=== PATIENT | male | born 1960 | race Caucasian/White ===

== ENCOUNTER 2019-10-18 09:31 | Inpatient (IN) ==
[2019-10-18 09:55] LABS: ALLEN TEST YES; BE -22.9 mmoll (-3.0-3.0); BLOOD TYPE ARTERIAL; METHB 1.3 % (0.0-1.5); O2(CT) 23.4 mL/dL (15.0-23.0); PO2(98.6) 106 mmHg (60-100); SAMPLE BLOOD; THB 17.3 g/dL (11.5-17.4)
[2019-10-18 09:57] LABS: MODALITY ROOM AIR
[2019-10-18 10:01] LABS: pH(98.6) 7.08 (7.35-7.45)
[2019-10-18 10:02] LABS: PCO2(98.6) 17 mmHg (35-45)
--- NOTE | 2019-10-18 10:10 | Diag Imaging Result Doc PS360 ---
CHEST-1 VIEW - 10/18/2019 INDICATION: CP COMPARISON: 07/14/2017 FINDINGS: The lungs are normally expanded and clear. Heart size and mediastinal contours are normal. No pneumothorax or pleural effusion. IMPRESSION: Negative exam. Electronically signed by Gustabo Patel 10/18/2019 10:08 AM
[2019-10-18] MEDS ORDERED: NS 1,000 ML IV ONE ×3 (10:13→13:08)
[2019-10-18 11:03] LABS: URINE SOURCE CLEAN CATCH
[2019-10-18 11:07] LABS: BILIRUBIN URINE NEGATIVE (NEGATIVE); BLOOD URINE SMALL (NEGATIVE); COLOR YELLOW; GLUCOSE URINE >1000 mg/dL (NEGATIVE); KETONE URINE 100 mg/dL (NEGATIVE); LEUKOCYTES URINE NEGATIVE (NEGATIVE); NITRITE URINE NEGATIVE (NEGATIVE); PH URINE 5.5; PROTEIN URINE 50 mg/dL (NEGATIVE); SP GRAVITY URINE 1.024; TURBIDITY URINE CLEAR (CLEAR); UROBILINOGEN URINE NORMAL (NORMAL)
[2019-10-18 11:08] LABS: UR EPITHELIAL CELLS <10 /HPF (<10); URINE BACTERIA NEGATIVE /HPF; URINE RBC <10 /HPF (<10); URINE WBC <10 /HPF (<10)
[2019-10-18 11:24] LABS: ALB/GLOB RATIO 1.8; ALBUMIN 4.9 g/dL (3.5-5.0); BASO# 0.02 X1000 (0.0-0.2); BASO% 0.1 % (0.0-0.8); CREATININE 2.5 mg/dL (0.7-1.2); HEMATOCRIT 51.8 % (42.0-52.0); HEMOGLOBIN 17.6 g/dL (14.0-18.0); IMM GRAN# 0.17 X1000 (0.0-0.04); IMM GRAN% 0.8 % (0.0-0.5); LYMPH# 0.82 X1000 (1.2-3.4); LYMPH% 3.8 % (20.5-51.1); MAGNESIUM 2.8 mg/dL (1.5-2.7); MCH 31.3 PG (27-31); MCV 92.2 FL (81-99); MONO# 1.18 X1000 (0.11-0.59); MONO% 5.5 % (1.7-9.3); MPV 12.3 FL (7.4-10.4); NEUT# 19.14 X1000 (1.4-6.5); NEUT% 89.8 % (42.2-75.2); PLT 289 X1000 (130-400); RBC 5.62 XMIL (4.7-6.1); RDW 12.3 % (11.5-14.5); TOTAL BILIRUBIN 0.4 mg/dL (0.20-1.00); TOTAL PROTEIN 7.7 g/dL (6.3-8.3); WBC 21.33 X1000 (4.8-10.8)
[2019-10-18 11:27] LABS: POTASSIUM 6.4 mmol/L (3.5-5.1)
[2019-10-18] MEDS ORDERED: SODIUM BICARBONATE 8.4% 100 MEQ in STERILE WATER INJ. 500 ML IV PRN ×2 (11:43→13:04)
[2019-10-18] MEDS ORDERED: D50W SYRINGE IV PRN ×3 (11:43→12:47)
[2019-10-18] MEDS ORDERED: HUMULIN R IV ONE (11:43)
[2019-10-18] MEDS ORDERED: SODIUM PHOSPHATE 30 MMOL in D5W 250 ML IV PRN ×2 (11:43→13:04)
[2019-10-18] MEDS ORDERED: MAGNESIUM SULFATE 2 GM/S.W.I. 2 GM/50 ML IVPB IV PRN ×2 (11:43→13:04)
[2019-10-18] MEDS ORDERED: POTASSIUM CHLORIDE 20 MEQ/SWI 20 MEQ/100 ML IVPB IV PRN ×2 (11:43)
--- NOTE | 2019-10-18 11:44 | EKG Report ---
Test Performed on : 10/18/2019 09:47:10 AM Test Reason : HIGH BLOOD SUGAR Blood Pressure : / mmHG Vent. Rate : 122 BPM Atrial Rate : 122 BPM P-R Int : 150 ms QRS Dur : 108 ms QT Int : 340 ms P-R-T Axes : 073 028 064 degrees QTc Int : 484 ms Sinus tachycardia. Possible Inferior infarct , age undetermined Abnormal ECG When compared with ECG of 06-AUG-2017 09:19, Vent. rate has increased BY 54 BPM Unconfirmed Result
[2019-10-18] MEDS ORDERED: HUMULIN R 100 UNIT in NS 100 ML IV SCH ×2 (11:45→13:00)
[2019-10-18] MEDS ORDERED: NS 1,000 ML IV SCH (11:45)
[2019-10-18] MEDS ORDERED: ZOSYN 4.5 GM in NS 100 ML IV ONE (11:49)
[2019-10-18 12:04] LABS: INR 1.12; PROTIME 14.5 Seconds (11.0-16.0)
[2019-10-18 12:05] LABS: PTT 28.9 Seconds (22.3-41.8)
[2019-10-18 12:07] LABS: HEMOGLOBIN A1C 11.5 % (4.8-6.0)
[2019-10-18] MEDS ORDERED: KAYEXALATE PO ONE (12:47)
[2019-10-18] MEDS ORDERED: TYLENOL PO PRN (12:47)
[2019-10-18] MEDS ORDERED: POTASSIUM CHLORIDE 40 MEQ/SWI 40 MEQ/100 ML IVPB IV PRN (13:04)
[2019-10-18] MEDS: NS 1,000 ML IV SCH ×2 (13:21→21:03)
[2019-10-18 14:11] LABS: CALCIUM 8.6 mg/dL (8.8-10.2); MAGNESIUM 2.7 mg/dL (1.5-2.7); PHOSPHORUS 3.3 mg/dL (2.7-4.5); POTASSIUM 5.5 mmol/L (3.5-5.1)
--- NOTE | 2019-10-18 15:12 | Diag Imaging Result Doc PS360 ---
ABDOMEN FLAT/UPRIGHT - 10/18/2019 INDICATION: pain COMPARISON: None FINDINGS: There is a nonobstructive bowel gas pattern. No free air or abdominal calcifications. IMPRESSION: No acute disease. Electronically signed by Gustabo Patel 10/18/2019 3:10 PM
[2019-10-18] MEDS: ZOFRAN IV PRN (15:31)
[2019-10-18] MEDS ORDERED: POTASSIUM CHLORIDE 20% LIQUID PO PRN (15:46)
[2019-10-18 16:31] LABS: UR CREAT RANDOM 38.2 mg/dL (14-26); UR PROT RANDOM 20.8 mg/dL
[2019-10-18] MEDS: D5 NS 1,000 ML IV PRN (17:24)
[2019-10-18 17:43] LABS: CALCIUM 8.3 mg/dL (8.8-10.2); MAGNESIUM 2.5 mg/dL (1.5-2.7)
[2019-10-18 17:47] LABS: CREATININE 1.9 mg/dL (0.7-1.2); PHOSPHORUS 2.5 mg/dL (2.7-4.5); POTASSIUM 4.9 mmol/L (3.5-5.1)
[2019-10-18] MEDS: POTASSIUM CHLORIDE 10% LIQUID PO PRN ×2 (17:59→23:45)
[2019-10-18] MEDS ORDERED: PRILOSEC PO ONE (18:26)
[2019-10-18] MEDS ORDERED: ZANTAC PO ONE (18:27)
--- NOTE | 2019-10-18 18:41 | HISTORY AND PHYSICAL ---
PRIMARY CARE PHYSICIAN: Dr. Jc Askew. CHIEF COMPLAINT: Nausea, vomiting, weakness and shortness of breath over the past 3 days that progressively worsened. HISTORY OF PRESENTING ILLNESS: This is a 58-year-old male who presents to [facility] with complaints of nausea, vomiting, weakness and shortness of breath over the past 3 days that progressively worsened. States this past Thursday he saw his primary care physician and was diagnosed with diabetes type 2 with an A1c of 13. He was placed on metformin and Farxiga and a glucose monitor. The next day, he states, the doctor's office called and stated that his cholesterol was in the 500s and started him on a statin, but he began the nausea and vomiting the next day, which would have been Thursday. He called the doctor's office and they told him to hold his diabetic medications, so he has not been taking any of the medications that he was prescribed due to having nausea and vomiting over the past 3 days that progressively worsened. When he arrived to the emergency room today, he had a white blood cell count of 21.33 and an ABG with a pH of 7.08, pCO2 of 17, PO2 of 106, bicarb of 7. His sodium was 134, potassium was 6.4, chloride 93, BUN 48, creatinine 2.5. Glucose was 505. His plasma lactate was 3.5. Hemoglobin A1c today was 11.5. Urinalysis was negative and his acetone is small, so he will be placed in the intensive care unit and placed on our DKA protocol and will be admitted for further evaluation and treatment. PAST MEDICAL HISTORY: Newly diagnosed diabetes type 2 approximately 5 days ago, hyperlipidemia, and right kidney cancer. PAST SURGICAL HISTORY: Partial right nephrectomy, back surgery, and hernia repair. FAMILY HISTORY: Reviewed and noncontributory. SOCIAL HISTORY: Currently lives with family, is a former smoker and quit 8 years ago. Denies any alcohol or illicit drug use. ALLERGIES: No known drug allergies. HOME MEDICATIONS: A current list will need to be obtained, reconciled, reviewed and restarted as appropriate. We will place an order for nursing to update and confirm home medications. LABORATORY DATA: Showed a white blood cell count of 21.33, hemoglobin of 17.6, hematocrit of 51.8, platelets of 289, PT/INR of 14.5 and 1.12. ABG with a pH of 7.08, pCO2 of 17, PO2 of 106, and bicarb of 7, and this was on room air. Sodium 134, potassium 6.4, chloride 93. CO2 was 8, anion gap 33, BUN 48, creatinine 2.5, glucose 505 with an A1c of 11.5. Magnesium 2.8, phosphorus 5.5. AST 35, ALT 99, alkaline phosphatase 164. Cardiac enzyme was negative. Plasma lactate of 3.4. Urinalysis was negative. Acetone level was small. Chest x-ray showed a negative exam. EKG showed sinus tachycardia at 122. REVIEW OF SYSTEMS: He denied any fever, chills, blurred vision, dizziness, chest pain, coughing. He was positive for some shortness of breath, generalized weakness, nausea, vomiting. Denied any abdominal pain, constipation, diarrhea, burning or hurting with urination. PHYSICAL EXAMINATION: VITAL SIGNS: On arrival he had a heart rate of 121, a pulse of 16, blood pressure 113/70, saturating 97% on room air. GENERAL: This is a 58-year-old male who is lying in the bed and answers questions appropriately. HEENT: Normocephalic, atraumatic. Normal ENT inspection. Oropharynx and nares are clear. EYES: Pupils are equal, round, reactive to light and accommodation. Extraocular movements are intact. NECK: Normal inspection, normal range of motion. LUNGS: Clear to auscultation bilaterally with equal lung expansion and chest wall movement. HEART: With regular rate and rhythm. No murmurs, rubs, or gallops. ABDOMEN: Soft, nontender, nondistended. Bowel sounds are present x4 quadrants. MUSCULOSKELETAL: He had 5/5 strength x4 extremities. NEUROLOGICAL: The cranial nerves II-XII appear grossly intact. ASSESSMENT: 1. Diabetic ketoacidosis in a newly diagnosis diabetic type 2 with hyperglycemia. 2. Hyperkalemia. 3. Acute kidney injury. 4. Leukocytosis, most likely reactive. PLAN: He will be admitted to the intensive care unit and placed on our DKA protocol. We will do a clear liquid diet with diabetic drinks. Labs per the protocol. We need to update and confirm home medications and give Zofran 4 mg IV every 4 hours p.r.n. We are going to give him some Kayexalate 30 grams p.o. x1 now and recheck labs again per the protocol. Further orders after seen by attending. We will give his fluids per the protocol also. He is receiving his second liter of fluids at this time. We will continue to follow. We will also consult the senior health educator. Dictated by DASH Strauss for Bimal Sal MD cc: DASH Strauss MD Thomas E. Lockard,
--- NOTE | 2019-10-18 19:39 | HISTORY AND PHYSICAL ---
ADDENDUM: The patient came in for abnormal blood sugar and feeling terrible for the last several days. He was diagnosed with diabetes 2 to 3 days ago, started on metformin and dapagliflozin (Farxiga). He has had pretty much uncontrolled nausea and vomiting since that time, unable to keep his medicines down. Today, he came in with a blood sugar over 500, hyperkalemia, metabolic acidosis, acute renal failure. Workup in the ER consistent with DKA, and he was admitted and treated as such. We will continue aggressive hydration, avoid any nephrotoxic drugs, continue insulin drip. I think at this point, I am going to convert him to subcutaneous insulin. I do not think we are going to be able to manage it, at least acutely or subacutely, until we get treatment. CRITICAL CARE TIME: 35 minutes for IV insulin and DKA. cc: Bimal Sal MD
[2019-10-18 20:57] LABS: CALCIUM 7.9 mg/dL (8.8-10.2); CREATININE 1.7 mg/dL (0.7-1.2); MAGNESIUM 2.2 mg/dL (1.5-2.7); PHOSPHORUS 1.4 mg/dL (2.7-4.5); POTASSIUM 4.3 mmol/L (3.5-5.1)
[2019-10-19] MEDS ORDERED: G.I. COCKTAIL PO ONE (00:16)
[2019-10-19] MEDS: D5 NS 1,000 ML IV PRN ×2 (00:19→09:36)
[2019-10-19 01:59] LABS: CALCIUM 8.1 mg/dL (8.8-10.2); CREATININE 1.6 mg/dL (0.7-1.2); MAGNESIUM 2.3 mg/dL (1.5-2.7); PHOSPHORUS 2.1 mg/dL (2.7-4.5); POTASSIUM 4.1 mmol/L (3.5-5.1)
[2019-10-19] MEDS: POTASSIUM CHLORIDE 10% LIQUID PO PRN (02:23)
[2019-10-19] MEDS: NS 1,000 ML IV SCH ×3 (05:14→18:02)
[2019-10-19] MEDS: PRILOSEC PO SCH (06:19)
[2019-10-19 07:15] LABS: ALB/GLOB RATIO 1.3; ALBUMIN 3.3 g/dL (3.5-5.0); CALCIUM 8.1 mg/dL (8.8-10.2); CREATININE 1.3 mg/dL (0.7-1.2); MAGNESIUM 2.4 mg/dL (1.5-2.7); POTASSIUM 3.6 mmol/L (3.5-5.1); TOTAL BILIRUBIN 0.22 mg/dL (0.20-1.00); TOTAL PROTEIN 5.8 g/dL (6.3-8.3)
[2019-10-19 08:39] LABS: BASO# 0.01 X1000 (0.0-0.2); BASO% 0.1 % (0.0-0.8); HEMATOCRIT 36.9 % (42.0-52.0); HEMOGLOBIN 12.8 g/dL (14.0-18.0); IMM GRAN# 0.09 X1000 (0.0-0.04); IMM GRAN% 0.6 % (0.0-0.5); LYMPH# 0.94 X1000 (1.2-3.4); LYMPH% 6.7 % (20.5-51.1); MCH 32.1 PG (27-31); MCHC 34.7 g/dL (33-37); MCV 92.5 FL (81-99); MONO# 1.69 X1000 (0.11-0.59); MONO% 12.1 % (1.7-9.3); MPV 11.3 FL (7.4-10.4); NEUT# 11.21 X1000 (1.4-6.5); NEUT% 80.5 % (42.2-75.2); PLT 169 X1000 (130-400); RBC 3.99 XMIL (4.7-6.1); RDW 12.2 % (11.5-14.5); WBC 13.94 X1000 (4.8-10.8)
[2019-10-19] MEDS: ZOFRAN IV PRN (08:45)
[2019-10-19] MEDS: ELAVIL PO SCH (08:45)
[2019-10-19 09:32] LABS: ESTIMATED GFR > 60
[2019-10-19 09:35] LABS: AGAP 14; BUN 19 mg/dL (8-22); CALCIUM 8.2 mg/dL (8.8-10.2); CHLORIDE 110 mmol/L (98-107); COSMO 285; CREATININE 1.2 mg/dL (0.7-1.2); GLUCOSE 198 mg/dL (70-104); MAGNESIUM 2.3 mg/dL (1.5-2.7); POTASSIUM 3.4 mmol/L (3.5-5.1); SODIUM 139 mmol/L (136-145); TCO2 15 mmol/L (25-35)
--- NOTE | 2019-10-19 09:38 | Diag Imaging Result Doc PS360 ---
EXAM: US ABDOMEN-COMPLETE HISTORY: abdominal pain TECHNIQUE: Abdominal ultrasound COMPARISON: None. FINDINGS: No abnormality to the pancreatic head or body. Tail is obscured. Inferior vena cava is also obscured. No dilatation to the proximal and mid aorta. Distal aorta is obscured. There is fatty infiltration of the liver. It is difficult to penetrate the liver. Normal gallbladder. No stones. The common bile duct measures 5 mm. The spleen is normal. No ascites. Normal left kidney. The lower pole of the right kidney is obscured. No hydronephrosis. IMPRESSION: Fatty infiltration of the liver Electronically signed by Duglas Hood 10/19/2019 9:36 AM
[2019-10-19] MEDS ORDERED: SODIUM PHOSPHATE 40 MEQ in NS 250 ML IV ONE (11:02)
[2019-10-19] MEDS ORDERED: G.I. COCKTAIL PO PRN (11:02)
[2019-10-19 14:55] LABS: AGAP 15; BUN 15 mg/dL (8-22); CHLORIDE 108 mmol/L (98-107); COSMO 284; ESTIMATED GFR > 60; GLUCOSE 191 mg/dL (70-104); MAGNESIUM 2.2 mg/dL (1.5-2.7); PHOSPHORUS 2.5 mg/dL (2.7-4.5); POTASSIUM 3.5 mmol/L (3.5-5.1); SODIUM 139 mmol/L (136-145); TCO2 16 mmol/L (25-35)
[2019-10-19 17:05] LABS: ALLEN TEST YES; BE -5.9 mmoll (-3.0-3.0); BLOOD TYPE ARTERIAL; HCO3-(ACT) 20.3 mmoll (20.0-26.0); O2(CT) 14.9 mL/dL (15.0-23.0); PCO2(98.6) 31 mmHg (35-45); PO2(98.6) 71 mmHg (60-100); SAMPLE BLOOD; SAO2 97.9 % (95.0-100.0); THB 11.1 g/dL (11.5-17.4); pH(98.6) 7.38 (7.35-7.45)
[2019-10-19 17:06] LABS: MODALITY ROOM AIR
[2019-10-19] MEDS ORDERED: LANTUS INSULIN SUBQ ONE (17:29)
[2019-10-19] MEDS ORDERED: HUMULIN R 100 UNIT in NS 100 ML IV SCH (17:30)
[2019-10-19 18:31] LABS: MAGNESIUM 2.2 mg/dL (1.5-2.7); PHOSPHORUS 2.5 mg/dL (2.7-4.5)
[2019-10-19] MEDS: HUMALOG SUBQ SCH (20:11)
[2019-10-20] MEDS: NS 1,000 ML IV SCH ×3 (05:04→17:04)
[2019-10-20] MEDS: HUMALOG SUBQ SCH ×3 (06:12→21:30)
[2019-10-20] MEDS: PRILOSEC PO SCH ×2 (06:12→21:28)
[2019-10-20 08:21] LABS: BASO# 0.01 X1000 (0.0-0.2); BASO% 0.1 % (0.0-0.8); EOS# 0.04 X1000 (0.0-0.7); EOS% 0.6 % (0.0-10.0); HEMATOCRIT 33.9 % (42.0-52.0); HEMOGLOBIN 11.5 g/dL (14.0-18.0); IMM GRAN# 0.02 X1000 (0.0-0.04); IMM GRAN% 0.3 % (0.0-0.5); LYMPH# 1.38 X1000 (1.2-3.4); LYMPH% 19.7 % (20.5-51.1); MCH 31.7 PG (27-31); MCHC 33.9 g/dL (33-37); MCV 93.4 FL (81-99); MONO% 12.8 % (1.7-9.3); MPV 11.6 FL (7.4-10.4); NEUT# 4.67 X1000 (1.4-6.5); NEUT% 66.5 % (42.2-75.2); PLT 137 X1000 (130-400); RBC 3.63 XMIL (4.7-6.1); RDW 12.2 % (11.5-14.5); WBC 7.02 X1000 (4.8-10.8)
[2019-10-20 09:01] LABS: AGAP 11; BUN 10 mg/dL (8-22); CALCIUM 8.1 mg/dL (8.8-10.2); CHLORIDE 107 mmol/L (98-107); COSMO 274; CREATININE 0.9 mg/dL (0.7-1.2); ESTIMATED GFR > 60; GLUCOSE 116 mg/dL (70-104); POTASSIUM 3.2 mmol/L (3.5-5.1); SODIUM 137 mmol/L (136-145); TCO2 19 mmol/L (25-35)
[2019-10-20] MEDS: ELAVIL PO SCH (10:20)
[2019-10-20] MEDS: LANTUS INSULIN SUBQ SCH (10:21)
[2019-10-20] MEDS: MIRALAX PO SCH (14:26)
[2019-10-20] MEDS: LACTULOSE PO SCH ×2 (14:26→21:28)
[2019-10-20] MEDS: CARAFATE LIQUID PO SCH (22:06)
[2019-10-21] MEDS: CARAFATE LIQUID PO SCH ×3 (02:08→14:03)
[2019-10-21] MEDS: HUMALOG SUBQ SCH ×2 (07:01→11:25)
[2019-10-21] MEDS: NS 1,000 ML IV SCH ×2 (07:37→09:57)
[2019-10-21 08:15] LABS: BASO# 0.01 X1000 (0.0-0.2); BASO% 0.2 % (0.0-0.8); EOS# 0.11 X1000 (0.0-0.7); EOS% 1.7 % (0.0-10.0); HEMATOCRIT 37.4 % (42.0-52.0); IMM GRAN# 0.02 X1000 (0.0-0.04); IMM GRAN% 0.3 % (0.0-0.5); LYMPH# 1.28 X1000 (1.2-3.4); LYMPH% 19.3 % (20.5-51.1); MCH 31.9 PG (27-31); MCHC 34.8 g/dL (33-37); MCV 91.9 FL (81-99); MONO% 13.6 % (1.7-9.3); MPV 11.2 FL (7.4-10.4); NEUT% 64.9 % (42.2-75.2); PLT 141 X1000 (130-400); RBC 4.07 XMIL (4.7-6.1); RDW 11.8 % (11.5-14.5); WBC 6.62 X1000 (4.8-10.8)
[2019-10-21 08:26] LABS: AGAP 12; BUN 8 mg/dL (8-22); CALCIUM 8.4 mg/dL (8.8-10.2); CHLORIDE 104 mmol/L (98-107); COSMO 277; CREATININE 0.8 mg/dL (0.7-1.2); ESTIMATED GFR > 60; GLUCOSE 117 mg/dL (70-104); SODIUM 139 mmol/L (136-145); TCO2 23 mmol/L (25-35)
[2019-10-21] MEDS: MIRALAX PO SCH (08:31)
[2019-10-21] MEDS: LACTULOSE PO SCH (08:31)
[2019-10-21] MEDS: PRILOSEC PO SCH (08:32)
[2019-10-21] MEDS: ELAVIL PO SCH (08:32)
[2019-10-21] MEDS: LANTUS INSULIN SUBQ SCH (08:34)
[2019-10-21 12:17] VITALS: BP 104/81
[2019-10-21] MEDS: MYCOSTATIN SUSP PO SCH ×2 (14:03→16:07)
[2019-10-21] MEDS ORDERED: KLOR-CON PO ONE ×2 (14:23→15:57)
[2019-10-21] MEDS: POTASSIUM CHLORIDE 20 MEQ/SWI 20 MEQ/100 ML IVPB IV SCH (15:56)
--- NOTE | 2019-10-21 18:31 | GASTROENTEROLOGY CONSULTATION ---
DATE: 10/21/2019 REASON FOR CONSULTATION: Nausea and vomiting. Dysphasia. HISTORY OF PRESENT ILLNESS: This is a 58-year-old male who presented to [facility] with complaints of nausea, vomiting, shortness of breath, weakness. He states he was recently diagnosed with diabetes type 2 by his primary care physician Dr. Jc Askew. He was started on metformin and Farxiga. He also had findings of elevated cholesterol and was started on a statin. His symptoms presented after starting these medications. He was having nausea, vomiting, progressive weakness came into the emergency room with elevated white blood cell count, elevated glucose and a hemoglobin A1c of 11.5, urinalysis had small amount of acetone. He was placed in the intensive care unit on DKA protocol. Currently he is now on the medical floor. His last reported nausea, vomiting episode was on Thursday. He states he is feeling better. He is currently receiving a PPI and Carafate. He had been held n.p.o. after midnight for possibility of endoscopy procedure today. Currently he denies abdominal pain. Currently denies dysphagia but he has not had anything to eat yet today. No reported nausea or vomiting. He states he feels much better. He is wanting to go home. PAST MEDICAL HISTORY: Recently diagnosed diabetes type 2, hyperlipidemia, history of right kidney cancer. PAST SURGICAL HISTORY: Partial right nephrectomy approximately 2 years ago he follows with Dr. Gar, history of laminectomy and left inguinal hernia repair. ALLERGIES: No known drug allergies. HOME MEDICATIONS: Amitriptyline 10 mg daily, Farxiga 10 mg daily, Vascepa 2 g twice a day, metformin 1000 mg daily, Zofran 4 mg every 6 hours as needed. SOCIAL HISTORY: He denies alcohol or tobacco use. He is . He has 2 children. 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 REVIEW OF SYSTEMS: Per history of present illness. Currently he denies chest pain, shortness of breath. No reported abdominal pain. No reported nausea, vomiting and no reported dysphagia at this time. PHYSICAL EXAMINATION: Vital Signs: Temperature 98.4 degrees, pulse 77, respirations 20, blood pressure 115/76. General: Patient is awake, alert, no acute distress. HEENT: Normocephalic, atraumatic. Pupils equal, round, reactive to light. Sclerae nonicteric. Oral mucosa is moist. No noted oral zoe. Respiratory: Lung sounds essentially clear. Cardiovascular: Regular rate and rhythm. Abdomen: Soft, nontender. Positive bowel sounds. Extremities: No lower extremity edema noted. Neurological: Cranial nerves 2-12 grossly intact. Patient is awake, alert, oriented to person, place and time. LABORATORY: Hematology. WBC 6.62, hemoglobin 13.0, hematocrit 37.4, MCV 91.9. Chemistry. Sodium 139, potassium 3.0, chloride 104, CO2 of 23, BUN 8, creatinine 0.8, glucose 117, total bilirubin 0.22, AST 21, ALT 54, alkaline phosphatase 101. ASSESSMENT AND PLAN: 1. Newly diagnosed diabetes. Continue current management and follow up with primary care physician. 2. Leukocytosis has resolved. 3. Nausea, vomiting has resolved. 4. Heartburn, dysphagia. Continue PPI and Carafate. Will also add nystatin for empirical treatment of possible zoe esophagitis due to his newly diagnosed diabetes. Recommend patient follow a soft diet over the next several days. If his symptoms do not improve, recommend he call to the office for EGD procedure to be scheduled. As far as GI is concerned he can be discharged when stable as far as his diabetes is concerned. We will continue to follow during this hospital course and further plans will be made according to his progress. I have ordered him a diabetic soft diet today and we will see how he does with that. Further plans to be made as needed. I have discussed this case with Dr. Perez. Dictated by DASH Martinez for Gonzales Perez MD cc: DASH Hancock MD
--- NOTE | 2019-10-22 18:22 | DISCHARGE SUMMARY ---
ADMISSION DATE: 10/18/2019 DISCHARGE DATE: 10/21/2019 PRIMARY CARE PHYSICIAN: Dr. Jc Askew. ADMISSION DIAGNOSIS: 1. Diabetic ketoacidosis in a newly diagnosed diabetic type 2 patient with hyperglycemia. 2. Hyperkalemia. 3. Acute kidney injury. 4. Leukocytosis most likely reactive. DISCHARGE DIAGNOSIS: 1. Diabetic ketoacidosis. 2. Type 2 diabetes uncontrolled with hyperglycemia, newly diagnosed diabetic. 3. Acute kidney injury resolved. 4. Leukocytosis resolved. SUMMARY OF FINDINGS: This is a 58-year-old male who presented to the ER with complaints of nausea, vomiting, weakness and shortness of breath over the past 3 days and progressively worsened. Stated 2 days prior on last Thursday he was diagnosed as a diabetic type 2 and was placed on Farxiga and metformin, 2 days later he began having a stomach bug like vomiting and was told to hold his diabetic medications as he was unable to keep any food or liquids down. He was noted to have an A1c of 13 and his doctor's office also called stating that his cholesterol was in the 500s and began him on a statin but had not started it since he had the nausea, vomiting. When he arrived to the emergency room he had an ABG with a pH of 708, pCO2 of 17, PO2 16, bicarb of 7. Sodium was 134, potassium 6.4, creatinine was 2.5, glucose was 505, plasma lactate of 3.5. Hemoglobin A1c on arrival was 11.3. He had small acetone in his blood so he was placed on the DKA protocol and placed in the intensive care unit per the protocol. We did do an abdomen ultrasound that just showed fatty infiltration of the liver. His triglycerides were 438, cholesterol was 288. He was stopped on the insulin drip per the protocol and has been doing much better. Blood sugars today have been 142 so it is felt that he can safely be discharged home today. DISCHARGE MEDICATIONS: His new medications at discharge will include NovoLog FlexPen 5 units subcu t.i.d., Lantus SoloSTAR pen 20 units subcutaneous daily, omeprazole 40 mg p.o. daily. FOLLOWUP: He does need to follow with his primary care physician in the next 1 to 2 weeks. Dictated by DASH Strauss for Bimal Sal MD cc: DO Bimal Manzano, MD
--- NOTE | 2019-10-22 21:10 | PROVIDER DOCUMENTATION ---
This chart was entered by Ashley Evans Scribe, acting as scribe for Oscar Cervantes MD. HPI-General Adult - General Chief Complaint: DKA ALERT Stated Complaint: HYPERGLYCEMIC Time Seen by Provider: 10/18/19 09:38 Source: patient Allergies/Adverse Reactions: Patient Allergies Allergy/AdvReac Type Severity Reaction Status Date / Time No Known Allergies Allergy Verified 08/12/17 05:31 Home Medications: Home Medication List Medication Instructions Recorded Confirmed Last Taken Type Amitriptyline HCl 10 mg PO DAILY 10/18/19 10/18/19 Unknown History Icosapent Ethyl [Vascepa] 2 gm PO BID 10/18/19 10/18/19 Unknown History Ondansetron HCl 4 mg PO Q6H PRN PRN 10/18/19 10/18/19 Unknown History Insulin Aspart [Novolog Flexpen] 5 unit SQ TID #1 insuln.pen 10/21/19 Unknown Rx Insulin Glargine,Hum.rec.anlog 20 unit SQ DAILY #1 insuln.pen 10/21/19 Unknown Rx [Lantus Solostar] Omeprazole [Prilosec] 40 mg PO DAILY@0700 #1 cap 10/21/19 Unknown Rx - History of Present Illness -Gen Adult Nature of Presenting Problems: 58yom presents to ED cc extreme weakness, SOB, nausea and vomiting for last 3 days. Pt reports his PCP advised him to hold his current meds due to the vomiting. Pt denies fever, chest pain or dysuria. Pt is drowsy but arousable upon exam. Pt has hx of Renal disease. Review of Systems - Adult - REVIEW OF SYSTEMS - ADULT Constitutional: reports: see HPI, fatique. denies: chills, fever Eyes: reports: no symptoms reported Ears, Nose, Mouth & Throat: reports: no symptoms reported Cardiovascular: reports: see HPI. denies: chest pain Respiratory: reports: see HPI, shortness of breath Gastrointestinal: reports: see HPI, nausea, vomiting Genitourinary: reports: see HPI. denies: dysuria Musculoskeletal: reports: no symptoms reported Integumentary: reports: no symptoms reported Neurological: reports: no symptoms reported Psychiatric: reports: no symptoms reported Endocrine: reports: no symptoms reported Hematologic/Lymphatic: reports: no symptoms reported Allergic/Immunologic: reports: no symptoms reported All Other Systems: Reviewed and Negative Past History - Adult - PAST MEDICAL HISTORY-ADULT Review of Records: reports: Nursing Assessment Review, Medications Reviewed, Social history reviewed & non-contributory. Major Childhood Illnesses: reports: denies history Cardiovascular: reports: denies history Respiratory: reports: denies history Gastrointestinal: reports: denies history Obstetrical/Gynecological: reports: denies history Genitourinary: reports: denies history Musculoskeletal: reports: denies history Neurological: reports: denies history Endocrine/Immune: reports: denies history Other Conditions: reports: denies history - IMMUNIZATION STATUS Childhood Immunizations: See Nurse Assessment Flu Vaccine: See Nurse Assessment - FAMILY HISTORY Family History: reviewed, not pertinent - SOCIAL HISTORY Smoking: quit greater than 1 year Physical Exam-General - PHYSICAL EXAM-ADULT Initial Vital Signs Reviewed: Yes - CONSTITUTIONAL General Appearance: lethargic, other (drowsy but arousable). negative: anxious, combative - EYES Eyes: PERRL/EOMI, pink conjunctivae - HEAD, EARS, NOSE, MOUTH & THROAT HENMT: normocephalic/atraumatic. negative: moist mucous membranes (dry), angioedema - NECK Neck: non-tender, normal inspection - RESPIRATORY Respiratory: chest non-tender, lungs clear, normal breath sounds. negative: wheezing - CARDIOVASCULAR Cardiovascular: normal peripheral pulses, no edema, tachycardia. negative: bradycardia - GASTROINTESTINAL (ABDOMEN) Abdominal Exam: normal bowel sounds, soft, tenderness (generalized). negative: guarding, rigid - MUSCULOSKELETAL Back Exam: normal inspection, no CVA tenderness, no vertebral tenderness Extremity: normal range of motion, normal inspection, normal capillary refill. negative: deformity - SKIN Integumentary: normal color. negative: diaphoresis, jaundice - PSYCHIATRIC Psych/Mental Status: normal mood/affect, oriented x 3. negative: anxious, disheveled Progress - PLAN OF CARE/RESULTS Progress/Plan/Lab Results: Vital Signs - 8 hr 10/18/19 09:53 Pulse Rate 121 H Respiratory Rate 16 Blood Pressure 113/70 O2 Sat by Pulse Oximetry 97 Laboratory Results - last 24 hr 10/18/19 10/18/19 09:46 09:51 Specimen Type ARTERIAL Sample Site R RADIAL pH 7.08 L* pCO2 17 L* pO2 106 H HCO3 7.0 L Base Excess -22.9 L Oxyhemoglobin 96.0 ABG O2 Sat (Calculated) 23.4 H ABG O2 Saturation 99.0 ABG Carboxyhemoglobin 1.70 ABG Methemoglobin 1.3 Jaydon Test YES A-a O2 Difference 22.0 Total Hemoglobin 17.3 Lactate 2.60 H Blood Gas Modality ROOM AIR FiO2 % 21.0 POC Glucose 425 H Orders Category Date Time Status CHEST-1 VIEW [RAD] Stat Exams 10/18/19 09:47 Completed ABG [RESP] Routine Lab 10/18/19 09:46 Completed CBC WITH ELECTRONIC DIFF [HEME] Stat Lab 10/18/19 10:13 Ordered CK PROFILE [SP CHEM] Stat Lab 10/18/19 10:13 Ordered COMPREHENSIVE METABOLIC PANEL [CHEM] Stat Lab 10/18/19 10:13 Ordered Ketone [ACETONE SERUM] [CHEM] Stat Lab 10/18/19 10:13 Uncollected MAGNESIUM [CHEM] Stat Lab 10/18/19 10:13 Ordered TROPONIN T Stat Lab 10/18/19 10:13 Ordered Result Diagrams: 10/21/19 07:42 10/21/19 07:42 - EKG 1 Time of EKG reading by physician:: 10:23 EKG Read and Signed by:: Oscar Cervantes EKG Interpretation (*Must complete 3 of following elements*): Abnormal (possible inferior infarct, age undetermined; tall T waves-hyperkylemia?;NO STEMI) Rate: 122 Rhythm: Sinus tachy QRS: normal ID Interval: normal - XRAY 1 XRAY: Bilateral XRAY Study: Chest Impression: See EMR Report (IMPRESSION: Negative exam. Electronically signed by Gustabo Patel 10/18/2019 10:08 AM) - CONSULTS/PCP/HOSPITALIST Notification #1 *Consult/PCP/Hospitalist*: Nat/[employer] CONSULT[facility] Time Discussed: 11:33 Consult Disposition: Admit (accepted pt) Departure - Departure Date of Disposition Decision: 10/18/19 Time of Disposition Decision: 12:20 DIAGNOSIS: DKA (diabetic ketoacidoses), Hypokalemia, Leucocytosis Disposition: ADMITTED INPATIENT 09 Certified Medical Emergency: Emergent Condition: Stable - Critical Care Note This patient required my direct & personal management of CC.: Yes Total Time (mins): 40 Critical Care Statement: This patient required my direct personal management to treat or rule out processes, the absence of which, could potentiallly result in sudden, clinically significant life or limb threatening deterioration. Attestation - Physician/ HUSSEIN Attestation Patient care was provided by Advanced Practice Provider:: No The physician spent face to face time with patient:: Yes Advanced Practice Provider documentation review:: Supervising physician onsite and consulted in the evaluation and care of this patient. The physician did have a face to face encounter with the patient. This chart was documented by the indicated scribe, (Ashley Evans Scribe) and accurately reflects the services I performed and decisions made by me, Oscar Cervantes MD, as attested by the provider's signature.
== END 2019-10-21 18:22 | disposition home or self-care (01) | DRG 638 ==
LOC: SUPCPDRO → ED 09:31 → ICU 09:32 → 3N 10-20 01:58
PROVIDERS: ATTEND Internal Medicine